=== PATIENT | male | born 1990 | race African-American/Black ===

== ENCOUNTER 2024-09-27 14:47 | Outpatient (AMB) | payer OTHER, SELFPAY ==
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
--- OUTSIDE RECORDS SUMMARY | 2024-09-27 14:51 | XMS_ITS | Encounter Summary ---
Author Organization [facility] Address [address] [place] [phone] Phone Care Team Providers Care Electrical Systems Designer Name Role Phone Hilary Jennings NP Primary Care Provide r Encounter Details Date Type Department Care Team (Late st Contact Info) Description 10/02/2021 Procedure Pass [facility] Radiology [address] [place] [address] Social History Tobacco Use Types Packs/Day Years Used Date Smoking Tobacco: Never Assessed Sex and Gender Information Value Date Recorded Sex Assigned at Male 03/28/2021 2:57 PM EST Legal Sex Male 5:33 PM EST Gender Identity Male 03/28/2021 2:57 PM EST Sexual Orientation Straight 03/28/2021 2: 57 PM EST documented as of this encounter Plan of Treatment Not on file documented as of this encounter Visit Diagnoses Not on filedocumented in this encounter Care Teams Electrical Systems Designer Relationship Specialty Start Date End Date Hilary Jennings NP [address] [place] [address] PCP - General 06/27/21 documented as of this encounter Additional Source Comments The information contained in this document represents components of the legal health record. It is not the complete legal health record.[facility]
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
[2024-09-27 14:54] VITALS: BP 104/76; PULSE 79; RESP 16; TEMP 36.5; O2SAT 97; BMI 23.5
== END 2024-09-27 16:05 | disposition home or self-care (01) ==
LOC: HO.HMCHD 14:48
PROVIDERS: PCP Physician Assistant; Visit Provider Internal Medicine
DX: M54.2 Cervicalgia (principal); R21 Rash and other nonspecific skin eruption

== ENCOUNTER 2024-10-20 12:41 | Outpatient (REF) | payer OTHER, SELFPAY ==
--- OUTSIDE RECORDS SUMMARY | 2024-10-20 13:07 | XMS_ITS | Encounter Summary ---
Author Organization [facility] Address [address] [place] [phone] Phone Care Team Providers Care Wooden Frame Builder Name Role Phone Hilary Jennings NP Primary Care Provide r Encounter Details Date Type Department Care Team (Late st Contact Info) Description 12/25/2022 Procedure Pass [facility] Radiology [address] [place] [address] Social History Tobacco Use Types Packs/Day Years Used Date Smoking Tobacco: Former Cigarettes Smokeless Tobacco: Never Education Answer Date Recorded Are you interested in more education? Not on hussein e 06/20/2022 Are you concerned about learning? Not on file 06/20/2022 No 06/20/2022 No 06/20/2022 Digital Access Answer Date Recorded No 07/17/2022 No 07/17/2022 Reliable internet access at home? Not on file 07/17/2022 Device with a working camera? Not on file Sex and Gender Information Value Date Recorded Sex Assigned at Male 03/28/2021 2:57 PM EST Legal Sex Male 5:33 PM EST Gender Identity Male 03/28/2021 2:57 PM EST Sexual Orientation Straight 03/28/2021 2: 57 PM EST documented as of this encounter Plan of Treatment Not on file documented as of this encounter Visit Diagnoses Not on filedocumented in this encounter Care Teams Wooden Frame Builder Relationship Specialty Start Date End Date Hilary Jennings NP [address] [place] [address] PCP - General 06/27/21 documented as of this encounter Additional Source Comments The information contained in this document represents components of the legal health record. It is not the complete legal health record.[facility]
--- OUTSIDE RECORDS SUMMARY | 2024-10-20 13:07 | XMS_ITS | Clinical Summary ---
Author Organization [facility] Address [address] [place] [address] Care Team Providers Care Wastewater Process Engineer Name Role Phone Loulou Kathleen NP Primary Care Provider Source Comments PLEASE NOTE, if this patient [...] Plan of Treatment Not on file Insurance [place] MED[place]ID Care Teams Wastewater Process Engineer Relationship Specialty Start Date End Date Loulou Kathleen NP [address] [place] [id number] PCP - General 02/11/22
--- OUTSIDE RECORDS SUMMARY | 2024-10-20 13:07 | XMS_ITS | Encounter Summary ---
Author Organization [facility] Address [address] [place] [address] Phone Care Team Providers Care Forest Worker Name Role Phone Hilary Jennings NP Primary Care Provide r Encounter Details Date Type Department Care Team (Late st Contact Info) Description 10/02/2021 Procedure Pass [facility] Radiology [address] [place] [address] Social History Tobacco Use Types Packs/Day Years [...] on filedocumented in this encounter Care Teams Forest Worker Relationship Specialty Start Date End Date Hilary Jennings NP [address] [place] [address] PCP - General 06/27/21 documented as of this encounter Additional Source Comments The information contained in this document represents components of the legal health record. It is not the complete legal health record.[facility]
--- OUTSIDE RECORDS SUMMARY | 2024-10-20 13:07 | XMS_ITS | Encounter Summary ---
Author Organization [facility] Address [address] [facility] [address] [place] [phone] Phone Care Team Providers Care Debrander Name Role Phone Hilary Jennings NP Primary Care Provide r Encounter Details Date Type Department Care Team (Late st Contact Info) Description 12/26/2022 Procedure Pass [facility] [place] [address] [facility], [address] [place] [address] Social History Tobacco Use Types Packs/Day Years [...] on filedocumented in this encounter Care Teams Debrander Relationship Specialty Start Date End Date Hilary Jennings NP [address] [place] [address] PCP - General 06/27/21 documented as of this encounter Additional Source Comments The information contained in this document represents components of the legal health record. It is not the complete legal health record.[facility]
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
--- OUTSIDE RECORDS SUMMARY | 2024-10-20 13:08 | XMS_ITS | Encounter Summary ---
Author Organization [facility] Address [address] [facility] [address] [place] [address] Phone Care Team Providers Care Helicopter Engineer Name Role Phone Hilary Jennings NP Primary Care Provide r Reason for Referral * MRI/CAT Scan - Closed Specialty Diagnoses / Procedures Referred By Chelle west Referred To Contact Radiology Diagnoses Abnormal CT scan Procedures CT Neck CHG CT NECK TISSUE CONTRAST Austyn Hsu MD Phone: tel: fax: mailto:[email or web address] Referral ID Status Reason Start Date Expiration Date Visits Re quested Visits Authorized [id number] Closed 01/25/2023 04/25/2023 1 1 Encounter Details Date Type Department Care Team (Late st Contact Info) Description 12/26/2022 Community Orders PHYSICIAN GATEWAY Austyn Hsu MD [address] [facility] [place] [place] [address] [email or web address] Abnormal CT scan (Primary Dx) Social History Tobacco Use Types Packs/Day Years [...] on file documented as of this encounter Results * CT NECK SOFT TISSUE WITH CONTRAST (2023 4:35 PM EST) Anatomical Region Laterality Modality Neck Computed Tomogra phy 01/30/2023 8:39 AM EST Impressions 01/30/2023 9:59 AM EST 1. No focal soft tissue thickening or suspicious enhancement within the trachea. 2. No other acute pathology identified within the neck. Narrative 01/30/2023 9:[address] NECK SOFT TISSUE WITH CONTRAST Referring clinician's provided indication for this examination in Epic: Abnormal imaging; 32 year old male with abnormal finding in trachea on MRI 1. Mild cervical spondylosis without any level of severe foraminal narrowing. 2. Questionable soft tissue thickening of R/O: malignancy, other abnormality at anterior wall of subglottic trachea TECHNIQUE: Multidetector-row CT of the neck was performed with intravenous contrast using tailored dose modulation techniques. Images were reconstructed in the axial, coronal, and sagittal planes. COMPARISON: MRI brain January 29, 2023, MRI cervical spine October 03, 2021 FINDINGS: Aerodigestive Tract: The mucosa is symmetric. The trachea is normal in appearance. No focal nodular or circumferential thickening identified, or abnormal enhancement. Lymph Nodes: There are no nodes meeting CT criteria for pathological involvement. Salivary Glands: No lesion is present. Thyroid Gland: The gland is homogenous in attenuation. Vessels: The major cervical vessels enhance normally. Paranasal Sinuses and Mastoids: The paranasal sinuses and mastoid air cells are well-aerated. Brain and Orbits: No detectable abnormality is present on non-diagnostic quality images of the brain and orbits. Lung Apices: Visualized lung apices are clear. Soft Tissues: No soft tissue mass, inflammation, or loculated collection. Bones: No suspicious osseous lesions are present. Mild degenerative changes are present within the cervical spine. Nonfusion of the posterior C1 arch, likely congenital. Procedure Note Ezequiel Duffy MD - 01/30/2023 CT NECK SOFT TISSUE WITH CONTRAST Referring clinician's provided indication for this examination in Epic:Abnormal imaging; 32 year old male with abnormal finding in trachea on MRI1. Mild cervical spondylosis without any level of severe foraminalnarrowing. 2. Questionable soft tissue thickening of R/O: malignancy,other abnormality at anterior wall of subglottic trachea TECHNIQUE: Multidetector-row CT of the neck was performed with intravenouscontrast using tailored dose modulation techniques. Images werereconstructed in the axial, coronal, and sagittal planes. COMPARISON: MRI brain January 29, 2023, MRI cervical spine September FINDINGS: Aerodigestive Tract: The mucosa is symmetric. The trachea is normal inappearance. No focal nodular or circumferential thickening identified, orabnormal enhancement. Lymph Nodes: There are no nodes meeting CT criteria for pathologicalinvolvement. Salivary Glands: No lesion is present. Thyroid Gland: The gland is homogenous in attenuation. Vessels: The major cervical vessels enhance normally. Paranasal Sinuses and Mastoids: The paranasal sinuses and mastoid aircells are well-aerated. Brain and Orbits: No detectable abnormality is present on non-diagnosticquality images of the brain and orbits. Lung Apices: Visualized lung apices are clear. Soft Tissues: No soft tissue mass, inflammation, or loculatedcollection. Bones: No suspicious osseous lesions are present. Mild degenerativechanges are present within the cervical spine. Nonfusion of the posteriorC1 arch, likely congenital. IMPRESSION: 1. No focal soft tissue thickening or suspicious enhancement within thetrachea. 2. No other acute pathology identified within the neck. Austyn Hsu MD IMG CT XSPECIALTY ORDERAB LES Final Result documented in this encounter Visit Diagnoses Diagnosis Abnormal CT scan- Primary Other nonspecific (abnormal) findings on radiological and other examinations of body structure Abnormal CT scan Other nonspecific (abnormal) findings on radiological and other examinations of body structure documented in this encounter Care Teams Helicopter Engineer Relationship Specialty Start Date End Date Hilary Jennings NP [address] [place] [address] PCP - General 06/27/21 documented as of this encounter Additional Source Comments The information contained in this document represents components of the legal health record. It is not the complete legal health record.[facility]
[2024-10-20 13:59] LABS: Appearance Urine Clear; Glucose Urine UA Negative (Negative); PH 6.5 (5.0-9.0); Specific Gravity - Urine 1.010 (1.005-1.025)
[2024-10-20 14:00] LABS: Hematocrit 42.7 % (42.0-52.0); Hemoglobin 14.4 g/dl (14.0-18.0); Mean Corpuscular HGB Conc 33.7 g/dl (31.0-36.0); Mean Corpuscular Hemoglobin 27.5 pg (27.0-33.0); Mean Corpuscular Volume 81.5 fL (80.0-98.0); NRBC Abs Auto 0.000 X10*3/uL (0.0-0.012); NRBC Pct Auto 0.0 /100WBC (0.0-0.2); Platelet Count 205 X10*3/uL (160-400); Red Blood Count 5.24 X10*6/uL (4.60-5.80); White Blood Count 7.7 X10*3/uL (4.8-10.8)
[2024-10-20 14:47] LABS: Alanine Aminotransferase 15 U/L (0-40); Albumin Level 4.5 g/dL (3.5-5.0); Alkaline Phosphatase 61 U/L (39-117); Anion Gap 12 (12-20); Aspartate Amino Transferase 48 U/L (5-37); Blood Urea Nitrogen 10 mg/dL (9-16); Calcium 9.3 mg/dL (8.4-10.2); Carbon Dioxide 28 mmol/L (22-29); Chloride 103 mmol/L (96-108); Cholesterol 225 mg/dL (<200); Estimated Glomerular Filt Rate > 60; HDL Cholesterol 55 mg/dL (>40); Potassium 4.0 mmol/L (3.3-5.1); Sodium 139 mmol/L (135-145); Total Protein 7.8 g/dL (6.5-8.0); Triglycerides 291 mg/dL (<150)
[2024-10-20 15:01] LABS: Thyroid Stimulating Hormone 1.02 uIU/mL (0.32-4.0)
== END 2024-10-20 12:42 | disposition home or self-care (01) ==
LOC: HO.LAB 12:41
PROVIDERS: PCP Internal Medicine; Visit Provider Internal Medicine
DX: E78.5 Hyperlipidemia, unspecified (principal)
CPT/HCPCS: 36415; 80048; 80061; 80076; 81003; 84443; 85027

== ENCOUNTER 2024-11-02 08:00 | Outpatient (AMB) | payer OTHER, SELFPAY ==
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
[2024-11-02 08:08] VITALS: BP 118/60; PULSE 74; TEMP 36.3; O2SAT 98; BMI 23.3
== END 2024-11-02 08:27 | disposition home or self-care (01) ==
LOC: HO.HMCSH 08:00
PROVIDERS: PCP Internal Medicine; Visit Provider Internal Medicine
DX: M47.812 Spondylosis without myelopathy or radiculopathy, cervical region (principal)

== ENCOUNTER 2024-12-28 07:27 | Outpatient (REF) | payer OTHER, SELFPAY ==
--- NOTE | ~2024-12-28 | MR_ITS ---
EXAMINATION: MR CERVICAL SPINE WITHOUT CONTRAST CLINICAL INFORMATION: M 47.812. Spondylosis without myelopathy or radiculopathy, cervical region. COMPARISON: None available. TECHNIQUE: MRI of the cervical spine was obtained using routine sequences without contrast. FINDINGS: Craniocervical junction is intact. Normal position of the cerebellar tonsils. No bone marrow STIR signal abnormality. Marginal osteophyte formation and disc desiccation, C5-6 and to a lesser extent C4-5, C6-7 and likely C3-4. Normal alignment. Loss of the physiologic cervical lordosis. Mild buckling deformity of the dorsal aspect of the thecal sac secondary to delirium ligament hypertrophy at C6-7. Cervical spinal cord signal is normal. C2-3: No disc herniation. No neuroforamina stenosis. C4-5: Broad-based disc osteophyte compresses formation resulting in ventral deformity of the thecal sac. No cord compression. No neuroforamina stenosis. C5-6: Broad-based disc osteophyte complex formation resulting in ventral deformity of the thecal sac. No cord signal abnormality. Bilateral neuroforamina narrowing. C6-7: Broad-based disc osteophyte complex formation resulting in ventral deformity of the thecal sac. Right greater than left neuroforamina stenosis. C7-T1: No disc herniation. No neuroforamina stenosis. T1-T2: Normal. No prevertebral compartment hematoma, mass or fluid collection. Flow-void signal within the main vessels is normal. Codominant vertebral arteries. Nonspecific prominent cervical lymph nodes, bilaterally. MR/MR cervical spine wo con IMPRESSION: Multilevel cervical spondylosis pronounced at C5-6 and C6-7 resulting in central spinal canal and right greater than left neuroforamina stenosis. No cord edema and or myelopathy. Electronically signed by: Junior Puga MD 12/28/2024 08:28 AM EST
--- OUTSIDE RECORDS SUMMARY | 2024-12-28 07:31 | XMS_ITS | Encounter Summary ---
Author Organization [facility] Address [address] [place] [address] Phone Care Team Providers Care Product Support Specialist Name Role Phone Hilary Jennings NP Primary Care Provide r Encounter Details Date Type Department Care Team (Late st Contact Info) Description 10/02/2021 Procedure Pass [facility] [address] [place] [address] Social History Tobacco Use Types Packs/Day Years [...] on filedocumented in this encounter Care Teams Product Support Specialist Relationship Specialty Start Date End Date Hilary Jennings NP [address] [place] [address] PCP - General 06/27/21 documented as of this encounter Additional Source Comments The information contained in this document represents components of the legal health record. It is not the complete legal health record.[facility]
--- OUTSIDE RECORDS SUMMARY | 2024-12-28 07:31 | XMS_ITS | Encounter Summary ---
Author Organization [facility] Address [address] [facility] [address] [place] [address] Phone Care Team Providers Care Emt Basic Name Role Phone Hilary Jennings NP Primary Care Provide r Encounter Details Date Type Department Care Team (Late st Contact Info) Description 12/26/2022 Procedure Pass [facility] [address] [facility], [address] [place] [address] Social History Tobacco Use Types Packs/Day Years [...] on filedocumented in this encounter Care Teams Emt Basic Relationship Specialty Start Date End Date Hilary Jennings NP [address] [place] [address] PCP - General 06/27/21 documented as of this encounter Additional Source Comments The information contained in this document represents components of the legal health record. It is not the complete legal health record.[facility]
--- OUTSIDE RECORDS SUMMARY | 2024-12-28 07:31 | XMS_ITS | Clinical Summary ---
Author Organization [facility] Address [address] [address] Phone Care Team Providers Care Music Specialist Name Role Phone Hilary Jennings NP Primary Care Provide r Allergies Active Allergy Reactions Criticality Noted Date Comments [place] Anaphylaxis High 02/03/2020 Tree nuts Fish Anaphylaxis [...] 01/28/2004 HIV ONE-TIME SCREENING (18-65 YEARS) 2009 INFLUENZA VACCINE (#1) 2024 COVID-19 VACCINE (2 - 2024- season) 2024 12/21/2020 Adult Td,Tdap Booster 09/03/2032 09/03/2022 , [...] topic Medical Devices Not on file Insurance [facility] [place] [place] [id number] [facility] PCP Member Subscriber Plan / Payer (Ef fective 2023-Present) Name:Socorro Manzanares Relation to Subscriber:Self Name:Socorro Manzanares Payer ID:[id number] (NAIC) Group ID:Not on file Type:HMO Address: [employer] CLAIMS [address] JOSE ANTONIO BROWN MD [facility] PCP Member Subscriber Plan / Payer (Ef fective 2023-) Name:Socorro Manzanares Relation to Subscriber:Self Name:Socorro Manzanares Payer ID:[id number] (NAIC) Group ID:Not on file Type:[employer] Address: [employer] CLAIMS [address] JOSE ANTONIO BROWN MD [facility] PCP Member Subscriber Plan / Payer (Ef fective 2023-Present) Name:Socorro Manzanares Relation to Subscriber:Self Name:Socorro Manzanares Payer ID:[id number] (NAIC) Group ID:Not on file Type:HMO Address: [employer] CLAIMS [address] JOSE ANTONIO BROWN MD [facility] PCP Member Subscriber Plan / Payer ( fective 2023-Present) Name:Socorro Manzanares Relation to Subscriber:Self Name:Socorro Manzanares Payer ID:[id number] (NAIC) Group ID:Not on file Type:O Address: [employer] CLAIMS [address] JOSE ANTONIO BROWN MD [facility] PCP Member Subscriber Plan / Payer ( fective 2023-Present) Name:Socorro Manzanares Relation to Subscriber:Self Name:Socorro Manzanares Payer ID:[id number] (NAIC) Group ID:Not on file Type:O Address: [employer] CLAIMS [address] JOSE ANTONIO BROWN MD Care Teams Music Specialist Relationship Specialty Start Date End Date Hilary Jennings NP [address] [place] [address] PCP - General 06/27/21 Additional Source Comments The information contained in this document represents components of the legal health record. It is not the complete legal health record.[facility]
--- OUTSIDE RECORDS SUMMARY | 2024-12-28 07:31 | XMS_ITS | Encounter Summary ---
Author Organization [facility] Address [address] [facility] [facility] [address] [place] [phone] Phone Care Team Providers Care Granulator Tender Name Role Phone Hilary Jennings NP Primary Care Provide r Reason for Referral * MRI/CAT Scan - Closed Specialty Diagnoses / Procedures Referred By Chelle west Referred To Contact Radiology Diagnoses Abnormal CT scan Procedures CT Neck CHG CT NECK TISSUE CONTRAST Austyn Hsu MD Phone: tel: fax:[phone] [email or web address] Referral ID Status Reason Start Date Expiration Date Visits Re quested Visits Authorized [id number] Closed 01/25/2023 04/25/2023 1 1 Encounter Details Date Type Department Care Team (Late st Contact Info) Description 12/26/2022 Community Orders PHYSICIAN GATEWAY Austyn sHu MD [address] [place] [address] [email or web address] Abnormal CT scan (Primary Dx) Social History [...] structure documented in this encounter Care Teams Granulator Tender Relationship Specialty Start Date End Date Hilary Jennings NP [address] [place] [address] PCP - General 06/27/21 documented as of this encounter Additional Source Comments The information contained in this document represents components of the legal health record. It is not the complete legal health record.[facility]
--- OUTSIDE RECORDS SUMMARY | 2024-12-28 07:31 | XMS_ITS | Encounter Summary ---
Author Organization [facility] Address [address] [place] [phone] Phone Care Team Providers Care Band Director Name Role Phone Hilary Jennings NP Primary Care Provide r Encounter Details Date Type Department Care Team (Late st Contact Info) Description 12/25/2022 Procedure Pass [facility] Radiology [address] [place] [address] Social History Tobacco Use Types Packs/Day Years [...] on filedocumented in this encounter Care Teams Band Director Relationship Specialty Start Date End Date Hilary Jennings NP [address] [place] [address] PCP - General 06/27/21 documented as of this encounter Additional Source Comments The information contained in this document represents components of the legal health record. It is not the complete legal health record.[facility]
== END 2024-12-28 07:28 | disposition home or self-care (01) ==
LOC: HO.MRI 07:27
PROVIDERS: PCP Internal Medicine; Visit Provider Internal Medicine
DX: M47.812 Spondylosis without myelopathy or radiculopathy, cervical region (principal)
CPT/HCPCS: 72141

== ENCOUNTER → 2024-12-28 07:27 | Outpatient (BNV) | payer OTHER, SELFPAY | PROVIDERS: PCP Internal Medicine; Visit Provider Radiology Diagnostic Radiology | DX: M47.812 Spondylosis without myelopathy or radiculopathy, cervical region (principal) | CPT/HCPCS: 72141 ==

== ENCOUNTER 2025-01-11 08:18 | Outpatient (AMB) | payer OTHER, SELFPAY ==
--- NOTE | 2025-01-11 08:26 | A.OFFPC_ITS ---
Vital Signs 01/11/25 08:32 Height 5 ft 9 in Weight 161 lb 0.4 oz BMI 23.8 BP 122/74 Blood Pressure Location Rt brachial Pulse 85 Pulse Source Pulse Oximeter Temp 97.7 F Pulse Oximetry (%) 97 Intake Visit Reasons: MRI results Intake Note: still having neck pain and lower back pain. Allergies fish derived (fish) Allergy (Severe, Verified 01/11/25 08:29) Anaphylaxis milk Allergy (Severe, Verified 01/11/25 08:29) Anaphylaxis peanut Allergy (Severe, Verified 01/11/25 08:29) Anaphylaxis tree nut Allergy (Severe, Verified 01/11/25 08:29) Anaphylaxis Tobacco use date assessed: 09/27/24 Dental Screening Dental Screen Date: 01/11/25 Did you have a dental visit in the last 12 months?: Yes Did you have a dental problem in the last 6 months where you did not have access to dental care?: Yes Was dental information given to patient?: Patient has dentist HPI HPI Comments History of Present Illness Details History of Present Illness - The patient is a 34-year-old male pres enting to review MRI results for chronic neck pain. - He reports a history of neck pain for the past seven to eight years. - The patient states the pain is particu larly noticeable with neck extension and flexion, but he is usually fine at rest. - He is currently undergoing physical th erapy, which has been somewhat helpful, and also reports relief from chiropractic adjustments. - A prior MRI of his lower back showed f indings similar to his recent cervical spine MRI, described as spondylosis or instability. - He also has a history of a recurrent r trever for which he has a cream to be used as needed. Social History - Employment: The patient works in [employer] and has been at his current job for about six months. Results - Cervical Spine MRI (12/28): Revealed s mall degenerative narrowing and spondylosis at C5-C6 and C6-C7. - Past Lumbar Spine MRI: Showed similar findings of spondylosis and instability. [facility] Medical History (Updated 01/11/25 @ 08:47 by James Shea MD) Cervical spondylosis DJD (degenerative joint disease) of cervical spine Social History Patient Tobacco Use Status: Former Tobacco user e-Cigarette/Vaping Use: Never Used Questionnaire PHQ-9 Over the last 2 weeks, how often have you been bothered by any of the following problems? 1. Little interest or pleasure in doing things: several days 2. Feeling down, depressed, or hopeless: several days 3. Trouble falling or staying asleep, or sleeping too much: not at all 4. Feeling tired or having little energy: more than half the days 5. Poor appetite or overeating: not at all 6. Feeling bad about yourself - or that you are a failure or have let yourself or your family down: not at all 7. Trouble concentrating on things, such as reading the newspaper or watching television: several days 8. Moving or speaking so slowly that other people could have noticed. Or the opposite - being so fidgety or restless that you have been moving around a lot more than usual: not at all 9. Thoughts that you would be better off or of hurting yourself in some way: not at all Total score: 5 Source: Developed by Drs. Yonis Contreras, Kaylin Scott, Bill Rose and colleagues, with an educational murphy from [employer]. Thrive Questionnaire Date Thrive assessed: 11/02/24 I am a: Patient What is your living situation today?: I have a steady place to live Within the past 12 months, did the food you bought not last and you didn't have the money to get more?: Never true Within the past 12 months, did you worry whether your food would run out before you got money to buy more?: Never true Do you have trouble paying for medicines?: No Do you have trouble getting transportation to medical appointments?: No Do you have trouble paying your heating and electricity bill?: No Do you have trouble taking care of your child, family member or friend?: No Do you have trouble with day-to-day activities such as bathing, preparing meals, shopping, managing finances, etc.?: No Are you currently unemployed and looking for a job?: No Are you interested in more education?: No THRIVE Score: 0 AUDIT C Alcohol Use Questionnaire (AUDIT-C) 1. How often do you have a drink containing alcohol?: 2-3 times a week 2. How many drinks containing alcohol do you have on a typical day when you are drinking?: 1 or 2 Total Score: 3 RAFIQ-7 AMB Questionnaire RAFIQ-7 Date RAFIQ - 7 assessed: 11/02/24 Feeling nervous, anxious, or on edge: 3 = Nearly every day Not being able to stop or control worryin = More than half the days Worrying too much about different things: 2 = More than half the days Trouble relaxin = Several days Being so restless that it is hard to sit still: 1 = Several days Becoming easily annoyed or irritable: 1 = Several days Feeling afraid as if something awful might happen: 1 = Several days Total RAFIQ-7 score (0-4 normal; 5-9 mild; 10-14 moderate; 15-21 severe): 11 Source: Developed by Drs. Yonis Contreras, Kaylin Scott, Bill Rose and colleagues, with an educational murphy from [employer]. Review of Systems Narrative Review of Systems - Musculoskeletal: Reports chronic neck pain for 7-8 years, which is exacerbated by extension and flexion. - Dermatologic: Reports a recurrent rash that comes and goes. - All other systems reviewed and are negative. Physical exam (Primary Care) Vital Signs: Last Vital Signs Temp 97.7 F 01/11/25 08:32 Pulse 85 01/11/25 08:32 BP 122/74 01/11/25 08:32 Pulse Ox 97 01/11/25 08:32 BMI result Body Mass Index 23.8 Tobacco/Smoking Status: Tobacco use Status Tobacco use date assessed 09/27/24 01/11/25 08:27 Patient Tobacco Use Status Former Tobacco user 01/11/25 08:27 e-Cigarette/Vaping Use Never Used 01/11/25 08:27 PHQ-9: PHQ-9 Score PHQ-9: Total score 5 01/11/25 08:33 Thrive Assessment: Date of Thrive Assessment Date Thrive assessed 11/02/24 01/11/25 08:27 Narrative Physical Exam General: Appearance normal, both eyes and all related structures Nutritional Appearance: Well nourished Orientation/consciousness: Patient oriented x3 Limitations: No limitations Head: Normal to inspection Neck: Normal visual inspection, but patient reports neck pain associated with spondylosis between C5-C6 and C6-C7 Chest: Normal palpation of entire chest wall Respiratory: Normal respiratory effort Neurology: Patient oriented x3 Office Procedures Flu Questionnaire Does the patient have a severe egg allergy?: No Does the patient have severe life threatening allergies?: No Does the patient have a fever or illness today?: No Has the patient ever had Guillain-[place] Syndrome?: No Has the patient ever had any past reaction to a flu shot?: No Immunizations Fluarix [id number] (PF) 45 mcg (15 mcg x 3)/0.5 mL IM syringe Performing Provider: James Shea MD [facility] Documented (not given) by: Cynthia Page on 01/11/25 08:34 Dose Route Admin Location Dispensed Lot Number Expiration Date [facility] Director Of Clinical Trials 0.5 mL IM mL VIS Given Date VIS Provided VIS Publication Date 01/11/25 Single Vaccine 24 Eligibility Eligibility Date Funding Source Coding Level of Care Code Est Pt Level 4 (65363) Complex EM visit Add On G2211 Diagnoses Cervical spondylosis M47.812 Assessment & Plan Assessment & Plan (1) Cervical spondylosis: Code(s): M47.812 - Spondylosis without myelopathy or radiculopathy, cervical region Category: Medical Plan Plan - Chronic neck pain/Cervical spondylosis: The patient will be referred to a forestry support specialist at [facility] for further evaluation of his chronic neck pain and MRI findings. - The patient is advised to continue with his current course of physical therapy. - Recurrent rash: The patient was advised to use his prescribed cream as needed when the rash appears. - Health Maintenance: The patient declined an influenza vaccination. Discussion Notes I reviewed the results of the patient's cervical spine MRI, which showed spondylosis at C5-C6 and C6-C7. I explained that this means there is some slight slippage of the vertebrae, but in my opinion, it is not the cause of his chronic neck pain. To get a specialist's opinion, I am referring him to the spine clinic at [facility] for further evaluation. We discussed that he should receive a call from their office for scheduling, and he should contact us if he does not hear from them within a reasonable timeframe. We also briefly discussed his recurrent rash, and I advised him to use his prescribed cream when it occurs. The patient declined the flu shot during this visit. Patient Instructions - A referral will be made to a forestry support specialist at [facility] for your chronic neck pain. - You should receive a phone call from their office to schedule an appointment. - If you do not hear from them by the first week of January, please contact our office. - You may continue your current physical therapy. - For your recurring rash, use the cream you were prescribed when the rash appears. Orders: Orders Influenza [id number] Immunization Today Z23 - Encounter for immunization Referrals Neuro Spine Referral M47.812 - Spondylosis without myelopathy or radiculopathy, cervical region Medications: New Fluarix [id number] (PF) (flu vac ts (6mos up)-PF) 0.5 mL IM ONCE 0.5 mL 0RF NS Z23 - Encounter for immunization
[2025-01-11 08:32] VITALS: BP 122/74; PULSE 85; TEMP 36.5; O2SAT 97; BMI 23.8
== END 2025-01-11 08:55 | disposition home or self-care (01) ==
LOC: HO.HMCSH 08:18
PROVIDERS: PCP Internal Medicine; Visit Provider Internal Medicine
DX: M47.812 Spondylosis without myelopathy or radiculopathy, cervical region (principal); Z23 Encounter for immunization

== ENCOUNTER → 2025-01-11 08:18 | Outpatient (BNVA) | payer OTHER, SELFPAY | PROVIDERS: PCP Internal Medicine; Visit Provider Internal Medicine | DX: M47.812 Spondylosis without myelopathy or radiculopathy, cervical region (principal); Z28.89 Immunization not carried out for other reason | CPT/HCPCS: 90471; 96127 ==